=== PATIENT | male | born 1965 | race Caucasian/White ===

== ENCOUNTER 2016-10-24 12:15 | Emergency (ER) | payer BC ==
[~2016-10-24] VITALS: Ht 180.3 cm; Wt 122.7 kg
[2016-10-24] MEDS ORDERED: BENA5TAB2 PO (13:11)
[2016-10-24] MEDS ORDERED: MULT-257 PO (13:11)
[2016-10-24] MEDS ORDERED: ASPI-515 PO (13:11)
[2016-10-24] MEDS ORDERED: HYDR12.53 PO (13:11)
[2016-10-24] MEDS ORDERED: SODIUM CHLORIDE FLUSH 10ML SYR IVF ONE (13:30)
[2016-10-24 13:53] LABS: BLOOD UREA NITROGEN 19 mg/dL (7-18)
[2016-10-24 13:59] LABS: ASPARTATE AMINO TRANSFERASE 37 U/L (15-37)
[2016-10-24 14:15] LABS: DAU SCREEN DISCLAIMER
[2016-10-24] MEDS ORDERED: CARBAMIDE PEROXIDE EAR DROPS 6.5%, 15ML ONE (15:35)
[2016-10-24 16:58] VITALS: BP 150/86
== END 2016-10-24 17:00 | disposition home or self-care (01) ==
LOC: ED 15:30
DX: G45.4 Transient global amnesia (principal); I10 Essential (primary) hypertension
CPT/HCPCS: 36415; 70450; 80053; 80307; 85025; 85610; 85730; 93005; 99285